=== PATIENT | female | born 1970 | race Hispanic/Latino ===

== ENCOUNTER 2020-05-27 19:37 | Emergency (ER) | payer BC ==
[~2020-05-27] VITALS: Ht 160 cm; Wt 97.5 kg
[2020-05-27] MEDS ORDERED: HYDRALAZINE HCL 20 MG/ML VIAL IV STA (19:55)
[2020-05-27] MEDS ORDERED: HYDRALAZINE HCL 20 MG/ML VIAL ONE (20:20)
--- NOTE | 2020-05-27 20:49 | Diagnostic Imaging Report ---
[facility] HISTORY: Headache COMPARISON: None. TECHNIQUE: Noncontrast axial scans were obtained from skull base to the vertex. Coronal and sagittal reconstructions obtained from the axial data. One or more of the following dose reduction techniques were used: Automated exposure control, adjustment of the mA and/or kV according to patient size, and/or utilization of iterative reconstruction technique. DISCUSSION: Scalp/Skull: Unremarkable. Brain sulci: Appropriate for patient's age. Ventricles: Normal in size and configuration. No hydrocephalus. Extra-axial spaces: No masses or fluid collections. Minimal carotid siphon calcifications. Parenchyma: No abnormal densities. No mass, hemorrhage, or large vascular territory acute infarct. Dural sinuses: No abnormal densities. Sellar/Suprasellar region: Intact. Skull base: Intact. Incidental findings: None. IMPRESSION: No acute intracranial abnormalities. Signed by: Dr. Reji Funk M.D. on 05/27/2020 8:46 PM
--- NOTE | 2020-05-27 21:11 | Emergency Department Note ---
History of Present Illnes History of Present Illness Chief Complaint: General Medicine Complaints History of Present Illness This is a 50 year old female Chief Complaint Comment OUT OF BP MEDS AND ARTHRITIS MED FOR 2MONTHS. FOR LAST 2WKS HAVING EPISODES OF ARTHRITIC PAIN AND HEAD ACHES, FEELING EXHAUSTED. . Historian: Patient, Family Member Arrival Mode: Car Onset (how long ago): day(s) (2) Location: hadache Quality: dull Radiation: Denies non-radiation, Denies back, Denies neck, Denies extremity, Denies abdomen, Denies periumbilical, Denies flank, Denies proximal, Denies distal, Denies other Severity: moderate Onset quality: gradual Duration (how long): day(s) (2) Progression: waxing and waning Chronicity: new Context: Reports recent illness; Denies recent surgery, Denies recent immobilization, Denies recent travel, Denies trauma/injury, Denies new medications, Denies hx of DVT/PE, Denies non- compliance w/ medications, Denies other Relieving factors: none Exacerbating factors: none Associated symptoms: Reports headaches; Denies denies other symptoms, Denies confusion, Denies chest pain, Denies cough, Denies diaphoresis, Denies fever/chills, Denies loss of appetite, Denies malaise, Denies nausea/vomiting, Denies rash, Denies seizure, Denies shortness of breath, Denies syncope, Denies weakness, Denies other Treatments prior to arrival: none Past Medical/Family History Physician Review I have reviewed the patient's past medical and family history. Any updates have been documented here. Past Medical History Recent Fever: No Clinical Suspicion of Infectio: No New/Unexplained Change in Ment: No Past Medical History: Hypertension, Diabetes Other Medical History: ARTHRITIS Past Surgical History: Appendectomy, Social History Smoking Cessation: Never Smoker Alcohol Use: None Other Any Pre-Existing Lines (PICC,: No Review of Systems Review of Systems Constitutional: Reports no symptoms EENTM: Reports no symptoms Cardiovascular: Reports no symptoms Respiratory: Reports no symptoms Gastrointestinal: Reports no symptoms Genitourinary: Reports no symptoms Musculoskeletal: Reports no symptoms Integumentary: Reports no symptoms Neurological: Reports as per HPI, Reports headache Psychological: Reports no symptoms Endocrine: Reports no symptoms Hematological/Lymphatic: Reports no symptoms Physical Exam Related Data Triage Vital Signs Vital Signs Date Time Temp Pulse Resp B/P (MAP) Pulse Ox O2 Delivery O2 Flow Rate FiO2 05/27/20 19:49 98.3 102 18 229/120 98 Room Air Vital signs reviewed: Yes Physical Exam CONSTITUTIONAL Constitutional: Present well-developed, Present well-nourished HENT HENT: Present normocephalic, Present atraumatic, Present oropharynx clear/moist, Present nose normal HENT L/R: Present left ext ear normal, Present right ext ear normal EYES Eyes: Reports PERRL, Reports conjunctivae normal NECK Neck: Present ROM normal PULMONARY Pulmonary: Present effort normal, Present breath sounds normal CARDIOVASCULAR Cardiovascular: Present regular rhythm, Present heart sounds normal, Present capillary refill normal, Present normal rate GASTROINTESTINAL Abdominal: Present soft, Present nontender, Present bowel sounds normal GENITOURINARY Genitourinary: Present exam deferred SKIN Skin: Present warm, Present dry MUSCULOSKELETAL Musculoskeletal: Present ROM normal NEUROLOGICAL Neurological: Present alert, Present oriented x 3, Present no gross motor or sensory deficits PSYCHOLOGICAL Psychological: Present mood/affect normal, Present judgement normal Results Laboratory Lab results reviewed: Yes Imaging Imaging results reviewed: Yes Critical Care Time Total Critical Care Time (min): 45 Critcal care necessary due to: toxidrome, other Critcal care time spent by me: develop tx plan w patient/surrogate, examination of patient, obtaining hx from patient/surrogate, order/perform tx or interventions, order/review laboratory studies, order/review radiographic studies, pulse oximetry, re-evaluation of patient condition, review of old charts Assessment & Plan Medical Decision Making MDM intracerebral bleed hypertensive urgency Reassessment Reassessment better Assessment & Plan Final Impression: (1) Hypertensive crisis (2) Hyperglycemia (3) Headache Depart Disposition: HOME, SELF-CARE Last Vital Signs Date Time Temp Pulse Resp B/P (MAP) Pulse Ox O2 Delivery O2 Flow Rate FiO2 05/27/20 20:58 98 18 153/59 98 Room Air 05/27/20 19:49 98.3 Medications in the ED Hydralazine HCl 10 mg NOW STAT IV Last administered on 05/27/20at 20:40; Admin Dose 10 MG; Start 05/27/20 at 19:55; Stop 05/27/20 at 19:58; Status DC Hydralazine HCl 20 mg STK-MED ONCE .ROUTE ; Start 05/27/20 at 20:20; Stop 05/27/20 at 20:15; Status DC MEGAN TATE MD May 27, 2020 21:11
[2020-05-27] MEDS ORDERED: HYDROCODONE/APAP 5MG-325MG TAB PO ONE (21:15)
[2020-05-27] MEDS ORDERED: INSULIN REGULAR, HUMAN 100 UNIT/1 ML 3ML VIAL SQ ONE (21:15)
[2020-05-27] MEDS ORDERED: INSULIN REGULAR, HUMAN 100 UNIT/1 ML 3ML VIAL ONE (21:16)
[2020-05-27] MEDS ORDERED: HYDROCODONE/APAP 5MG-325MG TAB ONE (21:16)
[2020-05-27 21:28] VITALS: BP 148/73
--- OUTSIDE RECORDS SUMMARY | 2020-05-27 21:58 | XMS REPORT | Clinical Summary ---
Author Author [facility] Organization [facility] Address Unknown Phone Unavailable Care Team Providers Care Chief Medical Technologist Name Role Phone Hugo Neil MD PCP [phone] Allergies No Known Allergies Medications Not on file Active Problems Not on file Social History Date Tobacco Use Types Packs/Day Years Used Never Smoker Smokeless Tobacco: Never Used Drinks/Week oz/Week Comments Alcohol Use No Alcohol Habits Answer Date Recorded How often do you have a drink containing alcohol? Never 08/29/2018 How many drinks containing alcohol do you have on No t asked a typical day when you are drinking? How often do you have six or more drinks on one Not asked occasion? Sex Assigned at Date Recorded Not on file Industry Job Start Date Occupation Not on file Not on file Not on file Travel End Travel History Travel Start No recent travel history available. Last Filed Vital Signs Not on file Plan of Treatment Not on file Results Not on fileafter 05/27/2019 Insurance Type Payer Benefit Subscriber ID Effective Phone Address Plan / Dates Group PPO [employer] PPO xxxxxxxxx 2018- NETWORK Present Advance Directives For more information, please contact: [phone] Patient Dental Office Coordinator Explanation Type Date Recorded Advance Directives, Living Will and Medical Power of Page Technician
--- OUTSIDE RECORDS SUMMARY | 2020-05-27 21:58 | XMS REPORT | Continuity of Care Document ---
Author Author [facility] Organization [facility] Address [address] [place] [address] Phone Unavailable Care Team Providers Care Unloader Name Role Phone Randal Neil MD PCP [phone] MEGAN TATE Attmichel Unavailable Payers Payer Name Policy Type Policy Number Effective Date Expiration Date S ource Problems This patient has no known problems. Allergies, Adverse Reactions, Alerts Allergy Name Allergy Type Status Severity Reaction(s) Onset Date Inacti ve Date Treating Clinician Comments Source No Known Allergies DA Active U 2019-09-17 00:00:00 [facility] No Known Allergies DA Active U 2012-08-03 00:00:00 [facility] Social History Social Habit Start Date Stop Date Quantity Comments Source History SDOH Alcohol Std Drinks [place] [facility] History SDOH Alcohol Binge [place] [facility] Sex Assigned At [facility] Alcohol intake 2018-08-29 00:00:00 2018-08-29 00:00:00 Current non-drinker of alcohol (finding) [facility] History SDOH Alcohol Frequency 2018-08-29 00:00:00 2018-08-29 00:00:0 0 1 [facility] Smoking Status Start Date Stop Date Source Never smoker [place] [facility] Medications This patient has no known medications. Procedures This patient has no known procedures. Results Test Description Test Time Test Comments Results Result Comments Source CT BRAIN WO-HOPD 2020-05-27 20:43:00 [facility] [address] [address] Patient Name: JESSIKA KUMAR MR #: [id number] : 1970 Age/Sex: 50/F Req #: [id number] Adm Physician: Ordered by: MEGAN TATE MD Report #: [id number] [facility] Room/Bed: Procedure: [id number] HOPD/CT BRAIN WO-HOPD Exam Date: 05/27/20 Exam Time: 2021 REPORT STATUS: Signed CT BRAIN WO-HOPD HISTORY: Headache COMPARISON: None. TECHNIQUE: Noncontrast axial scans were obtained from skull base to the vertex. Coronal and sagittal reconstructions obtained from the axial data. One or more of the following dose reduction techniques were used: Automated exposure control, adjustment of the mA and/or kV according to patient size, and/or utilization of iterative reconstruction technique. DISCUSSION: Scalp/Skull: Unremarkable. Brain sulci: Appropriate for patient's age. Ventricles: Normal in size and configuration. No hydrocephalus. Extra-axial spaces: No masses or fluid collections. Minimal carotid siphon calcifications. Parenchyma: No abnormal densities. No mass, hemorrhage, or large vascular territory acute infarct. Dural sinuses: No abnormal densities. Sellar/Suprasellar region: Intact. Skull base: Intact. Incidental findings: None. IMPRESSION: No acute intracranial abnormalities. Signed by: Dr. Reji Funk M.D. on 05/27/2020 8:46 PM Dictated By: REJI FUNK MD 45 Transcribed By: JOSE ALFREDO on 05/27/202045 COPY TO: MEGAN TATE MD FINGER/TOES AMP.,NON-TRAUMATIC 2019-10-13 16:10:00 DATE: 10/13/19 [facility] PAGE 1 RUN TIME: 1611 Specimen Inquiry RUN USER: INTERFACE PATIENT: MAHENDRA VÁZQUEZ JORDANJESSIKA CRISELDAT #: [id number] LOC: [facility] U #: [id number] AGE/SX: 49/F ROOM: [facility] RE10/05/19REG DR: Augustin Rios MD : 70 BED: A DIS: 10/08/19 STATUS: DIS IN TLOC: SPEC #: [id number] RECD: 10/07/19 STATUS: CECILIA SOLARES #: [id number] SILVIA: 10/07/19-[address]: Jessica Moya DPM ENTERED: 10/07/19 SP TYPE: FINGER/TOE OTHR DR: Nita,JessicaHugo Walker DPM, MD, Zaher MDORDERED: MAG COPIES TO: Jessica Moya DPM [address] [place], [place] [id number] [place] [address] [place], [place] [address] Morgan Blackwell MD [address] [id number] MARKERS: INTRADEPARTMENTAL CONSULT PROCEDURES: GROSS (10/13/19- 1549) TISSUES: TOE, NOS - LEFT 2nd CLINICAL HISTORY COLLECTION DATE: 10/07/19 OSTEOMYELITIS COMMENT Intradepartmental consultation: DMW. FINAL DIAGNOSIS Left foot, second digit, amputation: BONE NECROSIS AND MILD INFLAMMATORY CHANGES COMPATIBLE WITH CHRONIC OSTEOMYELITIS SKIN WITH EPITHELIAL HYPERPLASIA, HYPERKERATOSIS AND MODERATE-MARKED CONTINUED ON NEXT PAGE RUN DATE: 10/13/19 [facility] PAGE 2 RUN TIME: 1611 Specimen Inquiry RUN USER: INTERFACE SPEC #: [id number] PATIENT: MCCRAY JESSIKA LENZ #[id number] (Continued) FINAL DIAGNOSIS (Continued) MIXED INFLAMMATION IN SUBCUTANEOUS TISSUE/GRANULATION TISSUE FOCALLY INCREASED ACUTE INFLAMMATION IN GRANULATION TISSUE UNREMARKABLE BONE AT PROXIMAL MARGIN NEGATIVE FOR MALIGNANCY RRAnselmo/carlee D [id number], [address] MACROSCOPIC The specimen is received in formalin, labeled with the patient's name, and identified as "left great toe". It consists of a toe which measures 5.3 cm in length by 2.1 cm in depth by 1.8 cm in height. There is an irregular area at the distal end of the toe which is located by the nail and measures 1.7 x 1.4 cm. Samples of the soft tissue in this area are submitted for microscopic evaluation in cassette (1A). The specimen is placed in decalcification solution and allowed to decalcify before further examination. After the specimen is allowed to decalcify additional samples are submitted for microscopic evaluation. Samples of the bone of the distal toe are submitted for microscopic evaluation in cassette (1B) a perpendicular section of the margin is submitted for microscopic evaluation in cassette (1C). The margin surface is smooth articular surface. GROSS PERFORMED AT [facility] [address] [place] [phone] MICROSCOPIC All of the stains, including any controls performed, stain appropriately. MICROSCOPIC PERFORMED AT [facility] [address] [place] [address] (p)[phone] PERFORMING SITE Diagnosis performed at: [facility], [address] [id number] CONTINUED ON NEXT PAGE RUN DATE: 10/13/19 [facility] PAGE 3 RUN TIME: 1611 Specimen Inquiry RUN USER: INTERFACE CIERRA Perez #: [id number] PATIENT: MAHENDRA VÁZQUEZ JORDANJESSIKA LEEIN #[id number] (Continued) Signed SIGNATURE ON FILE Raymond Lowe MD 10/13/19 1610 END OF REPORT VANCOMYCIN 2019-10-08 11:32:00 Test Item VANCOMYCIN (test code = VANCO) 16.1 UG/ML 5.0-45.0 N [id number] 10:43:00* Test Item Value Reference Range Interpretation Comments GLUBED (test code = GLUBED) 94 mg/dL 74-106 N Performed by certified bottom saw operator at [facility] [id number] 21:07:00* Test Item Value Reference Range Interpretation Comments GLUBED (test code = GLUBED) 126 mg/dL 74-106 H Performed by certified bottom saw operator at [facility] [id number] 16:46:00* Test Item Value Reference Range Interpretation Comments GLUBED (test code = GLUBED) 101 mg/dL 74-106 N [facility] certified bottom [facility] - XR FOOT 3 + V [id number] 16:28:00 FAX: Augustin Rios MD [phone] [place]: St: ADM FAX: Jessica Moya [phone] FAX: Hugo Tate [phone] Name: MAHENDRA SEYMOURJESSIKA [facility] : 1970 Age/S: 49/F [address] [facility] Unit #: [id number] Loc: V.[address] [place] [address] Phys: Jessica Moya DPM Acct: [id number] Dis Date: Status: ADM IN [facility] #: [phone] Exam Date: 10/07/2019 1624 FAX #: [phone] Reason: Status Post Amputation Left 2nd digit EXAMS: CPT CODE: [id number] XR FOOT 3 + [place] [id number] REASON FOR EXAM: Status Post Amputation Left 2nd digit EXAM ORDER DATE: 10/07/2019 12:00 AM Ordering: Jessica Moya DPM Attending:Augustin Rios MD Location:[facility] URE: - XR FOOT 3 + V LT FINDINGS: 3 views of the left foot were o btained. The patient is status post amputation of the second phalanx. Post op emphysema present.. The joint spaces are maintained. The metatarsal and tarsal bones are unremarkable IMPRESSION: Status post amp utation of the second left phalanx at 1628 Reported and signed by: Albin Limon M.D. CC: Augustin Rios MD; Jessica Moya DPM; Hugo Shipman Technologist: JEAN PEIRRE Blevinss crd Date/Time/By: 10/07/2019 (8963) : By: AnnmarieVTL Orig Print D/T: S: 10/07/2019 (1031) PAGE 1 Signed Report [id number] 11:25:00* Test Item Value Reference Range Interpretation Comments GLUBED (test code = GLUBED) 125 mg/dL 74-106 H Performed by certified bottom saw operator at [facility] [id number] 08:37:00* Test Item Value Reference Range Interpretation Comments GLUBED (test code = GLUBED) 157 mg/dL 74-106 H Performed [facility] certified bottom saw [facility] UR HCG [id number] 06:31:00* Test Item Value Reference Range Interpretation Comments UR HCG QUAL (test code = HCGQLU) NEGATIVE This HCGQL test is NOT applicable for MALE patients.Check with nurse about probable order error.If Tumor Marker Test needed, nurse should order test "HCGTU"(Test #[id number]) [id number] 20:50:00* Test Item Value Reference Range Interpretation Comments GLUBED (test code = GLUBED) 192 mg/dL 74-106 H Performed by certified bottom saw [facility] - MRI LOW EXT W/O CONT [id number] 18:31:00 FAX: Kerri Sofia MD [phone] [place]: B St: ADM FAX: Sonya Valiente [phone] FAX: Jessica Moya [phone] FAX: Hugo Tate [phone] Name: JESSIKA [facility] : 1970 Age/S: 49/F [address] [facility] Unit #: [id number] Loc: V.[address] [place] [address] Phys: Sonya Valiente NP Acct: [id number] Dis Date: Status: ADM IN PHONE #: [phone] Exam D ate: 10/06/20191811 FAX #: [phone] Reason: O STEOMYLITIS EXAMS: CPT CODE: [id number] MRI LOW EXT W/[place] [id number] REASON FOR EXAM: OSTEOMYLITIS Exam Order Date: 10/06/2019 9:17 AM Ordering: Sonya Valiente NP Attending:Kerri Green MD Location:[facility]: Procedure: - MRI LOW EXT W/O CONT LT FINDIN GS: Multiplanar images of the left foot were obtained in in T1, T2, and pr oton density with fat saturation. No IV gadolinium was given. Diffuse edema of the distal and middle phalanx of the left 2nd digit s uggestive of osteomyelitis. No evidence of abscess or fluid collection. The joint spaces are maintained. The remaining digits are intact. IMPRESSION: IQ osteomyelitis of the distal and middle phalanx of the left 2nd digit Electronically Signed by Krystin Limon on 2019 at 1831 Reported and signed by: Albin Limon M.D. CC: Kerri Green MD; Sonya Valiente VIDEOTAPE OPERATOR; Jessica Moya DPM; Hugo Neil Technologist: Yousuf Aguilar)(MR) Trnscrd Date/Time/By: (1830) : By: Teressa.VTL Orig Print D/T: S: 10/06/2019 (1056) PAGE 1 Signed Report [id number] 16:52:00* Test Item Value Reference Range Interpretation Comments GLUBED (test code = GLUBED) 136 mg/dL 74-106 H Performed by certified bottom saw operator at [facility] SED [id number] 13:12:00* Test Item Value Reference Range Interpretation Comments SED RATE (test code = SEDW) 48 mm/hr 0-20 H WINTROBE METHOD: NORMAL RANGE FOR MEN: 0-9 MM/HR WOMAN: 0-20 MM/HR COM NO#[id number] SED RATE [id number] 13:12:00* Test Item Value Reference Range Interpretation Comments SED RATE WESTERGREN (test code = SEDW) 48 mm/hr 0-20 H [id number] 12:08:00* Test Item Value Reference Range Interpretation Comments GLUBED (test code = GLUBED) 169 mg/dL 74-106 H Performed by certified bottom saw operator at [facility] [id number] 08:56:00* Test Item Value Reference Range Interpretation Comments GLUBED (test code = GLUBED) 114 mg/dL 74-106 H Performed by certified bottom saw operator at [facility] PROCALCITONIN (PCT)2019-10-06 00:01:00* Test Item Value Reference Range Interpretation Comments PROCALCITONIN (PCT) (test code = PROCAL) 0.16 ng/ml Concentration Interpretation (ng/mL) <0.51 Sepsis is not likely. Local bacterial infection is possible. (LOW RISK for progression to Sepsis) 0.51 - 2.00 Sepsis is possible, but other conditions are known to elevate PCT as well. (MODERATE RISK for progression to Sepsis) > 2.00 Sepsis is likely, unless other causes are known. (HIGH RISK for progression to Severe Sepsis or Septic Shock) 10.00 High likelihood of Severe Sepsis or Septic or higher Shock. *Increased PCT levels may not always be related to systemic bacterial infection.*Low PCT levels do not automatically exclude the presence of bacterial infection.*All results should be interpreted taking into account the patients history. CBC W/MANUAL [id number] 23:58:00* Test Item Value Reference Range Interpretation Comments WHITE BLOOD CELL (test code = WBC) 4.3 K/mm3 4.5-12.5 L RED BLOOD CELL (test code = RBC) 3.73 mill/mm3 3.7-5.2 N HEMOGLOBIN (test code = HGB) 10.8 gram/dL 11.5-15.5 L HEMATOCRIT (test code = HCT) 32.3 % 36.0-46.0 L MEAN CELL VOLUME (test code = MCV) 86.6 fL 80-98 N MEAN CELL HGB (test code = MCH) 29.0 picogram 27.0-33.0 N MEAN CELL HGB CONCETRATION (test code = MCHC) 33.4 gram/dL 33.0-36. 0 N RED CELL DISTRIBUTION WIDTH (test code = RDW) 12.9 % 11.6-16. 2 N RED CELL DISTRIBUTION WIDTH SD (test code = RDW-SD) 40.1 fL 37 .0-51.0 N PLATELET COUNT (test code = PLT) 159 K/mm3 150-450 N MEAN PLATELET VOLUME (test code = MPV) 9.3 fL 6.7-11.0 N IMMATURE GRANULOCYTE % (test code = IG%) 0.5 % 0.0-5.0 N NUCLEATED RBC % (test code = NRBC%) 0.0 % 0-0 N NEUTROPHIL # (test code = NT#) 1.85 K/mm3 1.8-7.7 N IMMATURE GRANULOCYTE # (test code = IG#) 0.02 x10 3/uL 0-0.03 N LYMPHOCYTE # (test code = LY#) 1.80 K/mm3 1.0-5.0 N MONOCYTE # (test code = MO#) 0.52 K/mm3 0-0.8 N EOSINOPHIL # (test code = EO#) 0.09 K/mm3 0.0-0.5 N BASOPHIL # (test code = BA#) 0.01 K/mm3 0.0-0.2 N NUCLEATED RBC # (test code = NRBC#) 0.00 K/mm3 0.0-0.1 N MANUAL DIFF REQUIRED (test code = MDIFF) YES STAIN ACCEPTABILITY (test code = STN ACCEPTABLE) STAIN ACCEPTABLE TOTAL CELLS COUNTED (test code = TCC) 112 #CELLS SEGMENTED NEUTROPHILS (test code = SEG) 52.7 % 39-69 N BAND NEUTROPHIL (test code = BAND) 0 % 0-10 N LYMPHOCYTE (test code = LYMPH) 37.5 % 25-55 N REACTIVE LYMPH (test code = RELYMPH) 0 % MONOCYTE (test code = MON) 9.8 % 0-10 N EOSINOPHIL (test code = EOS) 0 % 0.0-5.0 N BASOPHIL (test code = BASO) 0 % 0-1.0 N METAMYELOCYTE (test code = META) 0 % 0-0 N MYELOCYTE (test code = MYELO) 0 % 0.0-0.0 N PROMYELOCYTE (test code = PROM) 0 % 0-0 N MORPHOLOGY COMMENT (test code = MOC) NORMAL PLATELET ESTIMATE (test code = PLTEST) ADEQUATE PLATELET MORPHOLOGY (test code = PLTMORPH) NORMAL IMMATURE FORMS (test code = IMMAT) 0 % 0-0 N COMPREHENSIVE METABOLIC [id number] 23:58:00* Test Item Value Reference Range Interpretation Comments SODIUM (test code = NA) 142 mmol/L 136-145 N POTASSIUM (test code = K) 4.2 mmol/L 3.5-5.1 N CHLORIDE (test code = CL) 106.0 mmol/L 98-107 N CARBON DIOXIDE (test code = CO2) 31.0 mmol/L 21-32 N ANION GAP (test code = GAP) 9.2 10-20 L GLUCOSE (test code = GLU) 155 mg/dL 74-106 H BLOOD UREA NITROGEN (test code = BUN) 14 mg/dL 7-18 N GLOMERULAR FILTRATION RATE (test code = GFR) > 60 mL/min >=60 Estimated GFR by using Modified MDRD formula.Chronic kidney disease is defined as either kidney damageor GFR <60 mL/min/1.73 m2 for >3 months. CREATININE (test code = CREAT) 0.50 mg/dL 0.55-1.02 L Note change in reference range due to change in reagent. BUN/CREATININE RATIO (test code = BUN/CREA) 28.0 10-20 H TOTAL PROTEIN (test code = PROT) 6.5 gram/dL 6.4-8.2 N ALBUMIN (test code = ALB) 3.4 g/dL 3.4-5.0 N GLOBULIN (test code = GLOB) 3.1 gram/dL 2.7-4.2 N ALBUMIN/GLOBULIN RATIO (test code = A/G) 1.1 0.75-1.50 N CALCIUM (test code = CA) 9.5 mg/dL 8.5-10.1 N BILIRUBIN TOTAL (test code = BILT) 0.60 mg/dL 0.0-1.0 N SGOT/AST (test code = AST) 25 IUnit/L 15-37 N SGPT/ALT (test code = ALT) 43 IUnit/L 12-78 N ALKALINE PHOSPHATASE TOTAL (test code = ALKP) 72 IUnit/L 45-117 N Note change in reference range due to change in reagent. LACTIC [id number] 23:56:00* Test Item Value Reference Range Interpretation Comments LACTIC ACID (test code = LACT) 0.8 mmol/L 0.4-1.9 N [id number] 23:56:00* Test Item Value Reference Range Interpretation Comments GLYCOSYLATED HEMOGLOBIN (HA1C) (test code = GLYHGB) 8.2 % HbA1 SUGGESTED DIAGNOSIS: HbA1C (%) Diabetic >6.4Prediabetes 5.7 - 6.4Normal <5.7 ESTIMATED AVERAGE GLUCOSE (test code = EAG) 189 MG/DL COMPREHENSIVE METABOLIC [id number] 23:47:00* Test Item Value Reference Range Interpretation Comments SODIUM (test code = NA) mmol/L 136-145 POTASSIUM (test code = K) mmol/L 3.5-5.1 CHLORIDE (test code = CL) mmol/L 98-107 CARBON DIOXIDE (test code = CO2) mmol/L 21-32 ANION GAP (test code = GAP) 10-20 GLUCOSE (test code = GLU) mg/dL 74-106 BLOOD UREA NITROGEN (test code = BUN) mg/dL 7-18 GLOMERULAR FILTRATION RATE (test code = GFR) mL/min >=60 CREATININE (test code = CREAT) mg/dL 0.55-1.02 BUN/CREATININE RATIO (test code = BUN/CREA) 10-20 TOTAL PROTEIN (test code = PROT) gram/dL 6.4-8.2 ALBUMIN (test code = ALB) g/dL 3.4-5.0 GLOBULIN (test code = GLOB) gram/dL 2.7-4.2 ALBUMIN/GLOBULIN RATIO (test code = A/G) 0.75-1.50 CALCIUM (test code = CA) 9.5 mg/dL 8.5-10.1 N BILIRUBIN TOTAL (test code = BILT) mg/dL 0.0-1.0 SGOT/AST (test code = AST) IUnit/L 15-37 SGPT/ALT (test code = ALT) IUnit/L 12-78 ALKALINE PHOSPHATASE TOTAL (test code = ALKP) IUnit/L 45-117 CBC W/MANUAL [id number] 23:34:00* Test Item Value Reference Range Interpretation Comments WHITE BLOOD CELL (test code = WBC) 4.3 K/mm3 4.5-12.5 L RED BLOOD CELL (test code = RBC) 3.73 mill/mm3 3.7-5.2 N HEMOGLOBIN (test code = HGB) 10.8 gram/dL 11.5-15.5 L HEMATOCRIT (test code = HCT) 32.3 % 36.0-46.0 L MEAN CELL VOLUME (test code = MCV) 86.6 fL 80-98 N MEAN CELL HGB (test code = MCH) 29.0 picogram 27.0-33.0 N MEAN CELL HGB CONCETRATION (test code = MCHC) 33.4 gram/dL 33.0-36. 0 N RED CELL DISTRIBUTION WIDTH (test code = RDW) 12.9 % 11.6-16. 2 N RED CELL DISTRIBUTION WIDTH SD (test code = RDW-SD) 40.1 fL 37 .0-51.0 N PLATELET COUNT (test code = PLT) 159 K/mm3 150-450 N MEAN PLATELET VOLUME (test code = MPV) 9.3 fL 6.7-11.0 N IMMATURE GRANULOCYTE % (test code = IG%) 0.5 % 0.0-5.0 N NUCLEATED RBC % (test code = NRBC%) 0.0 % 0-0 N NEUTROPHIL # (test code = NT#) 1.85 K/mm3 1.8-7.7 N IMMATURE GRANULOCYTE # (test code = IG#) 0.02 x10 3/uL 0-0.03 N LYMPHOCYTE # (test code = LY#) 1.80 K/mm3 1.0-5.0 N MONOCYTE # (test code = MO#) 0.52 K/mm3 0-0.8 N EOSINOPHIL # (test code = EO#) 0.09 K/mm3 0.0-0.5 N BASOPHIL # (test code = BA#) 0.01 K/mm3 0.0-0.2 N NUCLEATED RBC # (test code = NRBC#) 0.00 K/mm3 0.0-0.1 N MANUAL DIFF REQUIRED (test code = MDIFF) YES STAIN ACCEPTABILITY (test code = STN ACCEPTABLE) TOTAL CELLS COUNTED (test code = TCC) #CELLS SEGMENTED NEUTROPHILS (test code = SEG) % 39-69 LYMPHOCYTE (test code = LYMPH) % 25-55 MONOCYTE (test code = MON) % 0-10 EOSINOPHIL (test code = EOS) % 0.0-5.0 CABOT RINGS (test code = CAB) MORPHOLOGY COMMENT (test code = MOC) PLATELET ESTIMATE (test code = PLTEST) PLATELET MORPHOLOGY (test code = PLTMORPH) CBC W/MANUAL [id number] 23:34:00* Test Item Value Reference Range Interpretation Comments WHITE BLOOD CELL (test code = WBC) 4.3 K/mm3 4.5-12.5 L RED BLOOD CELL (test code = RBC) 3.73 mill/mm3 3.7-5.2 N HEMOGLOBIN (test code = HGB) 10.8 gram/dL 11.5-15.5 L HEMATOCRIT (test code = HCT) 32.3 % 36.0-46.0 L MEAN CELL VOLUME (test code = MCV) 86.6 fL 80-98 N MEAN CELL HGB (test code = MCH) 29.0 picogram 27.0-33.0 N MEAN CELL HGB CONCETRATION (test code = MCHC) 33.4 gram/dL 33.0-36. 0 N RED CELL DISTRIBUTION WIDTH (test code = RDW) 12.9 % 11.6-16. 2 N RED CELL DISTRIBUTION WIDTH SD (test code = RDW-SD) 40.1 fL 37 .0-51.0 N PLATELET COUNT (test code = PLT) 159 K/mm3 150-450 N MEAN PLATELET VOLUME (test code = MPV) 9.3 fL 6.7-11.0 N IMMATURE GRANULOCYTE % (test code = IG%) 0.5 % 0.0-5.0 N NUCLEATED RBC % (test code = NRBC%) 0.0 % 0-0 N NEUTROPHIL # (test code = NT#) 1.85 K/mm3 1.8-7.7 N IMMATURE GRANULOCYTE # (test code = IG#) 0.02 x10 3/uL 0-0.03 N LYMPHOCYTE # (test code = LY#) 1.80 K/mm3 1.0-5.0 N MONOCYTE # (test code = MO#) 0.52 K/mm3 0-0.8 N EOSINOPHIL # (test code = EO#) 0.09 K/mm3 0.0-0.5 N BASOPHIL # (test code = BA#) 0.01 K/mm3 0.0-0.2 N NUCLEATED RBC # (test code = NRBC#) 0.00 K/mm3 0.0-0.1 N MANUAL DIFF REQUIRED (test code = MDIFF) YES STAIN ACCEPTABILITY (test code = STN ACCEPTABLE) TOTAL CELLS COUNTED (test code = TCC) #CELLS SEGMENTED NEUTROPHILS (test code = SEG) % 39-69 LYMPHOCYTE (test code = LYMPH) % 25-55 MONOCYTE (test code = MON) % 0-10 EOSINOPHIL (test code = EOS) % 0.0-5.0 CABOT RINGS (test code = CAB) MORPHOLOGY COMMENT (test code = MOC) PLATELET ESTIMATE (test code = PLTEST) PLATELET MORPHOLOGY (test code = PLTMORPH) CBC W/MANUAL [id number] 23:34:00* Test Item Value Reference Range Interpretation Comments WHITE BLOOD CELL (test code = WBC) 4.3 K/mm3 4.5-12.5 L RED BLOOD CELL (test code = RBC) 3.73 mill/mm3 3.7-5.2 N HEMOGLOBIN (test code = HGB) 10.8 gram/dL 11.5-15.5 L HEMATOCRIT (test code = HCT) 32.3 % 36.0-46.0 L MEAN CELL VOLUME (test code = MCV) 86.6 fL 80-98 N MEAN CELL HGB (test code = MCH) 29.0 picogram 27.0-33.0 N MEAN CELL HGB CONCETRATION (test code = MCHC) 33.4 gram/dL 33.0-36. 0 N RED CELL DISTRIBUTION WIDTH (test code = RDW) 12.9 % 11.6-16. 2 N RED CELL DISTRIBUTION WIDTH SD (test code = RDW-SD) 40.1 fL 37 .0-51.0 N PLATELET COUNT (test code = PLT) 159 K/mm3 150-450 N MEAN PLATELET VOLUME (test code = MPV) 9.3 fL 6.7-11.0 N IMMATURE GRANULOCYTE % (test code = IG%) 0.5 % 0.0-5.0 N NUCLEATED RBC % (test code = NRBC%) 0.0 % 0-0 N NEUTROPHIL # (test code = NT#) 1.85 K/mm3 1.8-7.7 N IMMATURE GRANULOCYTE # (test code = IG#) 0.02 x10 3/uL 0-0.03 N LYMPHOCYTE # (test code = LY#) 1.80 K/mm3 1.0-5.0 N MONOCYTE # (test code = MO#) 0.52 K/mm3 0-0.8 N EOSINOPHIL # (test code = EO#) 0.09 K/mm3 0.0-0.5 N BASOPHIL # (test code = BA#) 0.01 K/mm3 0.0-0.2 N NUCLEATED RBC # (test code = NRBC#) 0.00 K/mm3 0.0-0.1 N MANUAL DIFF REQUIRED (test code = MDIFF) YES STAIN ACCEPTABILITY (test code = STN ACCEPTABLE) TOTAL CELLS COUNTED (test code = TCC) #CELLS SEGMENTED NEUTROPHILS (test code = SEG) % 39-69 LYMPHOCYTE (test code = LYMPH) % 25-55 MONOCYTE (test code = MON) % 0-10 EOSINOPHIL (test code = EOS) % 0.0-5.0 MORPHOLOGY COMMENT (test code = MOC) PLATELET ESTIMATE (test code = PLTEST) PLATELET MORPHOLOGY (test code = PLTMORPH) CBC W/MANUAL [id number] 23:34:00* Test Item Value Reference Range Interpretation Comments WHITE BLOOD CELL (test code = WBC) 4.3 K/mm3 4.5-12.5 L RED BLOOD CELL (test code = RBC) 3.73 mill/mm3 3.7-5.2 N HEMOGLOBIN (test code = HGB) 10.8 gram/dL 11.5-15.5 L HEMATOCRIT (test code = HCT) 32.3 % 36.0-46.0 L MEAN CELL VOLUME (test code = MCV) 86.6 fL 80-98 N MEAN CELL HGB (test code = MCH) 29.0 picogram 27.0-33.0 N MEAN CELL HGB CONCETRATION (test code = MCHC) 33.4 gram/dL 33.0-36. 0 N RED CELL DISTRIBUTION WIDTH (test code = RDW) 12.9 % 11.6-16. 2 N RED CELL DISTRIBUTION WIDTH SD (test code = RDW-SD) 40.1 fL 37 .0-51.0 N PLATELET COUNT (test code = PLT) 159 K/mm3 150-450 N MEAN PLATELET VOLUME (test code = MPV) 9.3 fL 6.7-11.0 N IMMATURE GRANULOCYTE % (test code = IG%) 0.5 % 0.0-5.0 N NUCLEATED RBC % (test code = NRBC%) 0.0 % 0-0 N NEUTROPHIL # (test code = NT#) 1.85 K/mm3 1.8-7.7 N IMMATURE GRANULOCYTE # (test code = IG#) 0.02 x10 3/uL 0-0.03 N LYMPHOCYTE # (test code = LY#) 1.80 K/mm3 1.0-5.0 N MONOCYTE # (test code = MO#) 0.52 K/mm3 0-0.8 N EOSINOPHIL # (test code = EO#) 0.09 K/mm3 0.0-0.5 N BASOPHIL # (test code = BA#) 0.01 K/mm3 0.0-0.2 N NUCLEATED RBC # (test code = NRBC#) 0.00 K/mm3 0.0-0.1 N MANUAL DIFF REQUIRED (test code = MDIFF) YES STAIN ACCEPTABILITY (test code = STN ACCEPTABLE) TOTAL CELLS COUNTED (test code = TCC) #CELLS SEGMENTED NEUTROPHILS (test code = SEG) % 39-69 LYMPHOCYTE (test code = LYMPH) % 25-55 MONOCYTE (test code = MON) % 0-10 MORPHOLOGY COMMENT (test code = MOC) PLATELET ESTIMATE (test code = PLTEST) PLATELET MORPHOLOGY (test code = PLTMORPH) CBC W/MANUAL [id number] 23:34:00* Test Item Value Reference Range Interpretation Comments WHITE BLOOD CELL (test code = WBC) 4.3 K/mm3 4.5-12.5 L RED BLOOD CELL (test code = RBC) 3.73 mill/mm3 3.7-5.2 N HEMOGLOBIN (test code = HGB) 10.8 gram/dL 11.5-15.5 L HEMATOCRIT (test code = HCT) 32.3 % 36.0-46.0 L MEAN CELL VOLUME (test code = MCV) 86.6 fL 80-98 N MEAN CELL HGB (test code = MCH) 29.0 picogram 27.0-33.0 N MEAN CELL HGB CONCETRATION (test code = MCHC) 33.4 gram/dL 33.0-36. 0 N RED CELL DISTRIBUTION WIDTH (test code = RDW) 12.9 % 11.6-16. 2 N RED CELL DISTRIBUTION WIDTH SD (test code = RDW-SD) 40.1 fL 37 .0-51.0 N PLATELET COUNT (test code = PLT) 159 K/mm3 150-450 N MEAN PLATELET VOLUME (test code = MPV) 9.3 fL 6.7-11.0 N IMMATURE GRANULOCYTE % (test code = IG%) 0.5 % 0.0-5.0 N NUCLEATED RBC % (test code = NRBC%) 0.0 % 0-0 N NEUTROPHIL # (test code = NT#) 1.85 K/mm3 1.8-7.7 N IMMATURE GRANULOCYTE # (test code = IG#) 0.02 x10 3/uL 0-0.03 N LYMPHOCYTE # (test code = LY#) 1.80 K/mm3 1.0-5.0 N MONOCYTE # (test code = MO#) 0.52 K/mm3 0-0.8 N EOSINOPHIL # (test code = EO#) 0.09 K/mm3 0.0-0.5 N BASOPHIL # (test code = BA#) 0.01 K/mm3 0.0-0.2 N NUCLEATED RBC # (test code = NRBC#) 0.00 K/mm3 0.0-0.1 N MANUAL DIFF REQUIRED (test code = MDIFF) YES STAIN ACCEPTABILITY (test code = STN ACCEPTABLE) TOTAL CELLS COUNTED (test code = TCC) #CELLS SEGMENTED NEUTROPHILS (test code = SEG) % 39-69 LYMPHOCYTE (test code = LYMPH) % 25-55 MONOCYTE (test code = MON) % 0-10 EOSINOPHIL (test code = EOS) % 0.0-5.0 CABOT RINGS (test code = CAB) MORPHOLOGY COMMENT (test code = MOC) PLATELET ESTIMATE (test code = PLTEST) PLATELET MORPHOLOGY (test code = PLTMORPH) [id number] 20:01:00* Test Item Value Reference Range Interpretation Comments GLUBED (test code = GLUBED) 124 mg/dL 74-106 H Performed by certified bottom saw operator at [facility] [id number] 17:32:00* Test Item Value Reference Range Interpretation Comments GLUBED (test code = GLUBED) 135 mg/dL 74-106 H [facility] certified [facility] - XR HIP W/PEL UNI 2+V [id number] 13:37:00 FAX: Nathan Degroot MD [phone] [place]: St: REG Name: JESSIKA GALINDO [facility] : [birth year] Age/S: 49/F [address] [place] [address] Unit #: [id number] Loc: [place] [address] Phys: Nathan Degroot MD Acct: [id number] Dis Date: Status: REG ER PHONE #: [phone] Exam Date: 09/17/2019 1313 FAX #: [phone] Reason: fall / pain EXAMS: CPT CODE: [id number] XR HIP W/PEL UNI 2+[place] LT [address] Study: - XR HIP W/PEL UNI 2+V LT 09/17/2019 11:37 AM Patient Name: JESSIKA MCCRAY MR: [id number] : 1970; Age: 49 years y/o Female Ordering Physician: Nathan Degroot MD Clinical Indication: fall / pain Comparison: None LEFT HIP, 2 views: No acute fracture, dislocation, or suspicious focal osseous lesion. The soft tissues are normal. IMPRESSION: No acute fracture or malalignment. SL: [id number] at 1331 Reported and signed by: Reynaldo Leigh M.D. CC: Nathan Degroot MD Technologist: Flower Ibarra RT(R) Trnscrd Date/Time/By: 09/17/2019 (3073) : By: [email or web address] Orig Print D/T: S: 09/17/2019 (4172) PAGE 1 Signed Report - CT C-SPINE W/O [id number] 12:56:00 Name: JESSIKA MCCRAY [facility] : 1970 Age/S: 49 / F [address] [place] [address] Unit #: [id number] Loc: [place] [address] Phys: Nathan Degroot MD Acct: [id number] Dis Date: Status: REG ER PHONE #: [phone] Exam Date: 09/17/2019 1234 FAX #: [phone] Reason: fall / pain EXAMS: CPT CODE: [id number] CT C-SPINE W/O CONT 38093 EXAM: CT CERVICAL SPINE WITHOUT CONTRAST DATE: 09/17/2019 11:37 AM : 1970; Age: 49 years y/o Female INDICATION: fall / pain COMPARISON: None TECHNIQUE: Volumetric CT of the cervical spine is acquired without contrast. Axial, coronal and sagittal images are provided. IV contrast: None. DLP: 274 mGy-cm CT imaging performed at this location utilizes radiation dose optimization techniques which include one or more of the following: - Automated exposure control -Adjustment of the mA and/or kV according to patient size -Use of iterative reconstruction technique FINDINGS: No acute fracture, traumatic malalignment or other acute bony abnormality is identified. No acute soft tissue abnormality is identified. 1.7 cm peripherally calcified nodule is seen involving the inferior left thyroid lobe. Visualized lungs are clear. Minimal spine degenerative changes. IMPRESSION: 1. No acute fracture. 2. 1.7 cm peripherally calcified nodule is seen involving the inferior left thyroid lobe. Further evaluation with nonemergent thyroid ultrasound would be helpful. SL: [id number] at 1256 Reported and signed by: Maria Del Carmen Ellis D.O. PAGE 1 Signed Report (CONTINUED) Name: JESSIKA MCCRAY : 1969 Age/S: 49 / F [address] [place] [address] Unit #: [id number] Loc: [place] [address] Phys: Nathan Degroot MD Acct: [id number] Dis Date: Status: REG ER PHONE #: [phone] Exam Date: 09/17/2019 1234 FAX #: [phone] Reason: fall / pain EXAMS: CPT CODE: [id number] CT C-SPINE W/O CONT 55140 <Continued> CC: Nathan Degroot MD Technologist:RT Kylie(R)(CT); Elizabeth CTDI: DLP: Trnscb Date/Time: 09/17/2019 (125) [email or web address] Orig Print D/T: S: 09/17/2019 (5827) PAGE 2 Signed Report - CT HEAD/BRAIN W/O [id number] 12:51:00 Name: JESSIKA MCCRAY : 1970 Age/S: 49 / F [address] [place] [address] Unit #: [id number] Loc: [place] [address] Phys: Nathan Degroot MD Acct: [id number] Dis Date: Status: REG ER PHONE #: [phone] Exam Date: 09/17/2019 1234 FAX #: [phone] Reason: fall / pain EXAMS: CPT CODE: [id number] CT HEAD/BRAIN W/O CONT 92809 STUDY: - CT HEAD/BRAIN W/O CONT 09/17/2019 11:37 AM Ordering Physician: Nathan Degroot MD Patient Name: JESSIKA MCCRAY MR: [id number] : 1970; Age: 49 years y/o Female Clinical Indication: fall / pain Comparison: None TECHNIQUE: Multiple contiguous transaxial noncontrast CT images were obtained through the head. Coronal and sagittal reformatted images were prepared. DOSE: CT imaging performed at this location utilizes radiation dose optimization technique which includes one or more of the followin) Automated exposure control; 2) Adjustment of the mA and/or kV according to patient's size; 3) Use of iterative reconstruction techniques. DLP (mGy-cm): 419 FINDINGS: BRAIN PARENCHYMA: The brain volume is appropriate for age. No evidence of acute intracranial hemorrhage, mass lesion, mass effect, mi dline shift, or extra-axial fluid collection. VENTRICLES: The late ral ventricles, third ventricle, fourth ventricle, and basilar cisterns ar e appropriate for degree of atrophy present. PARANASAL SINUSES: Th e visualized portions of the paranasal sinuses are clear. MA STOIDS: Clear. ORBITS: The visualized portions of the orbits are n ormal. SOFT TISSUES: No significant abnormality. SKU LL: No acute fracture or suspicious osseous lesion. IMPR ESSION: PAGE 1 Signed Report (CONTINUED) Name: JESSIKA MCCRAY [facility] : 1970 Age/S: 49 / F [address] [place] [address] Unit #: [id number] Loc: [place] [address] Phys: Nathan Degroot MD Acct: [id number] Dis Date: Status: REG ER PHONE #: [phone] Exam Date: 09/17/2019 1234 FAX #: [phone] Reason: fall / pain EXAMS: CPT CODE: [id number] HEAD/BRAIN W/O CONT 45597 <Continued> No acute intracranial abnormality. SL: [id number] at 1251 Reported and signed by: Reynaldo Leigh M.D. CC: Nathan Degroot MD Technologist:Jeanie Lancatser RT(R)(CT); Elizabeth CTDI: DLP: Trnscb Date/Time: 09/17/2019 (5809) [id number] Orig Print D/T: S: 09/17/2019 (1365) PAGE 2 Signed Report URINALYSIS [id number] 20:49:00* Test Item Value Reference Range Interpretation Comments UA COLOR (test code = COLU) YELLOW YELLOW UA APPEARANCE (test code = APPU) CLEAR CLEAR UA GLUCOSE DIPSTICK (test code = DGLUU) NORMAL mg/dL NEGATIVE UA BILIRUBIN DIPSTICK (test code = BILU) NEGATIVE mg/dL NEGATIVE UA KETONE DIPSTICK (test code = KETU) neg mg/dL NEGATIVE UA SPECIFIC GRAVITY (test code = SGU) 1.010 1.001-1.035 UA BLOOD DIPSTICK (test code = TERESSA) 50 (2+) Ben/uL NEGATIVE A UA PH DIPSTICK (test code = ELLIOT) 5.0 5.0-8.0 UA PROTEIN DIPSTICK (test code = PROU) neg mg/dL Neg-15 UA UROBILINIOGEN DIPSTICK (test code = URO) norm mg/dL 0.0-0.2 UA NITRITE DIPSTICK (test code = NEHA) NEGATIVE NEGATIVE UA LEUKOCYTE ESTERASE DIPSTICK (test code = LEUU) 25 (Trace) uL NEG ATIVE A UA WBC (test code = WBCU) 5-10 per HPF 0-5 A IN SOME URINARY TRACT INFECTIONS THERE MAY NOT BE ENOUGHWBCs IN THE URINE TO TRIGGER AN AUTOMATIC (REFLEX) URINECULTURE. A SEPERATE ORDER FOR URINE CULTURE IS RECOMMENDEDIF THERE IS STRONG SUPPORT FOR A URINARY TRACT INFECTIONCLINICALLY. UA RBC (test code = RBCU) 0-2 per HPF 0-5 UA EPITHELIAL CELLS (test code = EPIU) Moderate (5-10/hpf) per HPF Few UA BACTERIA (test code = BACU) MODERATE per HPF NONE A Urine Source? Clean CatchURINALYSIS [id number] 20:42:00* Test Item Value Reference Range Interpretation Comments UA COLOR (test code = COLU) YELLOW YELLOW UA APPEARANCE (test code = APPU) CLEAR CLEAR UA GLUCOSE DIPSTICK (test code = DGLUU) NORMAL mg/dL NEGATIVE UA BILIRUBIN DIPSTICK (test code = BILU) NEGATIVE mg/dL NEGATIVE UA KETONE DIPSTICK (test code = KETU) neg mg/dL NEGATIVE UA SPECIFIC GRAVITY (test code = SGU) 1.010 1.001-1.035 UA BLOOD DIPSTICK (test code = TERESSA) 50 (2+) Ben/uL NEGATIVE A UA PH DIPSTICK (test code = ELLIOT) 5.0 5.0-8.0 UA PROTEIN DIPSTICK (test code = PROU) neg mg/dL Neg-15 UA UROBILINIOGEN DIPSTICK (test code = URO) norm mg/dL 0.0-0.2 UA NITRITE DIPSTICK (test code = NEHA) NEGATIVE NEGATIVE UA LEUKOCYTE ESTERASE DIPSTICK (test code = LEUU) 25 (Trace) uL NEG ATIVE A UA WBC (test code = WBCU) per HPF 0-5 Urine Source? Clean CatchC REACTIVE [id number] 20:42:00* Test Item Value Reference Range Interpretation Comments C REACTIVE PROTEIN (test code = CRP) 1.2 0.00-5.00 N - XR FOOT 3 + V [id number] 20:41:00 Name: MAHENDRA LENZTOR [facility] : 1970 Age/S:48 /F [address] [facility] Unit#:[id number] Loc: [place] [address] Phys: Fernando Jj MD Dis Date: PHONE #: [phone] Status: REG ER FAX #: [phone] Exam Date: 10/20/2018 Reason: Pain EXAMS: CPT CODE: [id number] XR FOOT 3 + [place] [id number] EXAM: Both feet, 3 views each; INFORMATION: Pain; FINDINGS: Normal shape and structure of the imaged bones; no evidence of fracture or dislocation; Plantar calcaneal spurs bilaterally; no soft tissue abnormalities. IMPRESSION: No evidence of acute osseous trauma or other significant pathological changes. Plantar calcaneal spurs. No radiopaque foreign body. at 2040 Reported and signed by: Sergio Juarez M.D. CC: Fernando Jj MD; Hugo Neil Technologist: MAXX ROBISON RT(R),CT Trnscrpt Data: 10/20/2018 (2040) Geraldine Orig Print D/T: S: 10/20/2018 (2043) PAGE 1 Signed Report BASIC METABOLIC [id number] 20:33:00* Test Item Value Reference Range Interpretation Comments SODIUM (test code = NA) 142 mmol/L 135-148 N POTASSIUM (test code = K) 4.0 mmol/L 3.5-5.1 N CHLORIDE (test code = CL) 104 mmol/L 101-109 N CARBON DIOXIDE (test code = CO2) 31.4 mmol/L 21-32 N ANION GAP (test code = GAP) 11 mmol/L 10-20 N GLUCOSE (test code = GLU) 115 mg/dL 74-106 H BLOOD UREA NITROGEN (test code = BUN) 16 mg/dL 3-21 N GLOMERULAR FILTRATION RATE (test code = GFR) > 60 mL/min >=60 Estimated GFR by using Modified MDRD formula.Chronic kidney disease is defined as either kidney damageor GFR <60 mL/min/1.73 m2 for >3 months. CREATININE (test code = CREAT) 0.62 mg/dL 0.55-1.3 N BUN/CREATININE RATIO (test code = BUN/CREA) 25.8 10-20 H CALCIUM (test code = CA) 9.5 mg/dL 8.4-10.2 N HEPATIC FUNCTION [id number] 20:33:00* Test Item Value Reference Range Interpretation Comments TOTAL PROTEIN (test code = PROT) 7.3 g/dL 6.5-8.4 N ALBUMIN (test code = ALB) 3.6 g/dL 3.4-4.8 N GLOBULIN (test code = GLOB) 3.7 G/DL 1-10 N ALBUMIN/GLOBULIN RATIO (test code = A/G) 1.0 RATIO 0.75-1.50 N BILIRUBIN TOTAL (test code = BILT) 0.30 mg/dL 0.0-1.0 N BILIRUBIN DIRECT (test code = BILD) 0.10 mg/dL 0.0-0.30 N SGOT/AST (test code = AST) 34 U/L 6-32 H SGPT/ALT (test code = ALT) 67 U/L 12-78 N N ote: Change in REFERENCE RANGE due to new reagent method. ALKALINE PHOSPHATASE TOTAL (test code = ALKP) 127 U/L 38-126 H LACTIC [id number] 20:33:00* Test Item Value Reference Range Interpretation Comments LACTIC ACID (test code = LACT) 0.7 MMOL/L 0.4-1.9 N BASIC METABOLIC [id number] 20:28:00* Test Item Value Reference Range Interpretation Comments SODIUM (test code = NA) 142 mmol/L 135-148 N POTASSIUM (test code = K) 4.0 mmol/L 3.5-5.1 N CHLORIDE (test code = CL) 104 mmol/L 101-109 N CARBON DIOXIDE (test code = CO2) 31.4 mmol/L 21-32 N ANION GAP (test code = GAP) 11 mmol/L 10-20 N GLUCOSE (test code = GLU) 115 mg/dL 74-106 H BLOOD UREA NITROGEN (test code = BUN) 16 mg/dL 3-21 N GLOMERULAR FILTRATION RATE (test code = GFR) > 60 mL/min >=60 Estimated GFR by using Modified MDRD formula.Chronic kidney disease is defined as either kidney damageor GFR <60 mL/min/1.73 m2 for >3 months. CREATININE (test code = CREAT) 0.62 mg/dL 0.55-1.3 N BUN/CREATININE RATIO (test code = BUN/CREA) 25.8 10-20 H CALCIUM (test code = CA) 9.5 mg/dL 8.4-10.2 N HEPATIC FUNCTION [id number] 20:28:00* Test Item Value Reference Range Interpretation Comments TOTAL PROTEIN (test code = PROT) gram/dL 6.4-8.2 ALBUMIN (test code = ALB) g/dL 3.4-5.0 GLOBULIN (test code = GLOB) g/dL 2.7-4.2 ALBUMIN/GLOBULIN RATIO (test code = A/G) 0.75-1.50 BILIRUBIN TOTAL (test code = BILT) mg/dL 0.2-1.2 BILIRUBIN DIRECT (test code = BILD) mg/dL 0.0-0.20 SGOT/AST (test code = AST) IUnit/L 15-37 SGPT/ALT (test code = ALT) U/L 10-69 ALKALINE PHOSPHATASE TOTAL (test code = ALKP) IUnit/L 45-117 CBC W/AUTO [id number] 20:16:00* Test Item Value Reference Range Interpretation Comments WHITE BLOOD CELL (test code = WBC) 6.6 K/mm3 4.5-12.5 N RED BLOOD CELL (test code = RBC) 3.84 mill/mm3 3.7-5.2 N HEMOGLOBIN (test code = HGB) 11.1 gram/dL 11.5-15.5 L HEMATOCRIT (test code = HCT) 32.9 % 36.0-46.0 L MEAN CELL VOLUME (test code = MCV) 85.7 fL 80-98 N MEAN CELL HGB (test code = MCH) 28.9 picogram 27.0-33.0 N MEAN CELL HGB CONCETRATION (test code = MCHC) 33.7 gram/dL 33.0-36. 0 N RED CELL DISTRIBUTION WIDTH (test code = RDW) 13.4 % 11.6-16. 2 N RED CELL DISTRIBUTION WIDTH SD (test code = RDW-SD) 40.5 fL 39 .1-52.0 N PLATELET COUNT (test code = PLT) 210 K/mm3 150-450 N MEAN PLATELET VOLUME (test code = MPV) 9.1 fL 6.7-11.0 N NEUTROPHIL % (test code = NT%) 60.2 % 39.0-69.0 N LYMPHOCYTE % (test code = LY%) 29.5 % 25.0-55.0 N MONOCYTE % (test code = MO%) 8.9 % 0.0-10.0 N EOSINOPHIL % (test code = EO%) 1.1 % 0.0-5.0 N BASOPHIL % (test code = BA%) 0.3 % 0.0-1.0 N NEUTROPHIL # (test code = NT#) 3.99 K/mm3 1.8-7.7 N LYMPHOCYTE # (test code = LY#) 1.95 K/mm3 1.0-5.0 N MONOCYTE # (test code = MO#) 0.59 K/mm3 0-0.8 N EOSINOPHIL # (test code = EO#) 0.07 K/mm3 0.0-0.5 N BASOPHIL # (test code = BA#) 0.02 K/mm3 0.0-0.2 N MANUAL DIFF REQUIRED (test code = MDIFF) NO
== END 2020-05-27 21:30 | disposition home or self-care (01) ==
LOC: FSED 20:00
DX: I16.9 Hypertensive crisis, unspecified (principal); E11.65 Type 2 diabetes mellitus with hyperglycemia; R51 Headache; M13.88 Other specified arthritis, other site
CPT/HCPCS: 70450; 80053; 85025; 96372; 96374; 99284; J0360; J1817